=== PATIENT | female | born 1975 | race Caucasian/White ===

== ENCOUNTER 2017-04-23 23:11 | Emergency (ER) | payer OTHER ==
[2017-04-24 00:14] LABS: microscopic required? YES; urine erythrocyte NEGATIVE (NEGATIVE)
[2017-04-24 01:40] VITALS: BP 120/80
== END 2017-04-24 01:40 | disposition home or self-care (01) ==
LOC: ED 23:11
PROVIDERS: Emergency Medicine
DX: N39.0 Urinary tract infection, site not specified (principal); R03.0 Elevated blood-pressure reading, without diagnosis of hypertension; M54.5 Low back pain
CPT/HCPCS: 87491; 87591; J1885

== ENCOUNTER 2018-03-22 14:21 | Emergency (ER) | payer OTHER ==
[~2018-03-22] VITALS: Ht 170.2 cm; Wt 68.0 kg
[2018-03-22 14:29] VITALS: Ht 170.2 cm; Wt 68.0 kg
[2018-03-22 15:22] VITALS: BP 130/76
== END 2018-03-22 15:26 | disposition home or self-care (01) ==
LOC: ED 14:21
DX: J02.9 Acute pharyngitis, unspecified (principal)
CPT/HCPCS: J1885

== ENCOUNTER 2019-06-14 02:22 | Emergency (ER) | payer OTHER ==
[~2019-06-14] VITALS: Ht 165.1 cm; Wt 78.5 kg
[2019-06-14 02:29] VITALS: Ht 165.1 cm; Wt 78.5 kg
[2019-06-14 05:47] VITALS: BP 114/59
== END 2019-06-14 05:47 | disposition home or self-care (01) ==
LOC: ED 02:22
DX: G43.909 Migraine, unspecified, not intractable, without status migrainosus (principal); R11.2 Nausea with vomiting, unspecified
CPT/HCPCS: J1200; J2765

== ENCOUNTER 2020-08-19 22:55 | Emergency (ER) | payer OTHER ==
[~2020-08-19] VITALS: Ht 165.1 cm; Wt 83.5 kg
[2020-08-19 23:11] VITALS: Ht 165.1 cm; Wt 83.5 kg
[2020-08-20 00:22] LABS: BASOPHIL % 0.9 % (0-2); PLATELET COUNT 244 x10^3mcL (130-400); RED CELL DISTRIBUTION WIDTH 13.1 % (11.5-14.5)
[2020-08-20 00:28] LABS: CALCIUM 8.4 mg/dL (8.5-10.1); CARBON DIOXIDE 25.7 mmol/L (21-32); CHLORIDE SERUM 104 mmol/L (98-107); CREATININE SERUM 0.7 mg/dL (0.6-1.0); GFR1 > 60 mL/min; GLUCOSE SERUM 93 mg/dL (74-106); SODIUM SERUM 137 mmol/L (136-145)
[2020-08-20 00:31] LABS: T3 TOTAL 1.44 ng/mL
[2020-08-20 00:33] LABS: ALKALINE PHOSPHATASE 56 U/L (46-116); ALT/SGPT 33 U/L (14-59); AST/SGOT 20 U/L (15-37); BILIRUBIN TOTAL 0.16 mg/dL (0.20-1.00); CHOLESTEROL 163 mg/dL (<200); CHOLESTEROL/HDL RATIO 4.5; HDL CHOLESTEROL 36 mg/dL (40-60); LIPASE 126 IU/L (73-393); TOTAL PROTEIN, SERUM 6.8 g/dL (6.4-8.2); TRIGLYCERIDES 118 mg/dL (<150)
[2020-08-20 00:40] LABS: ALBUMIN 3.2 g/dL (3.4-5.0)
[2020-08-20 01:03] LABS: microscopic required? YES; urine erythrocyte TRACE (NEGATIVE)
[2020-08-20 01:07] VITALS: BP 135/66
[2020-08-20 01:07] LABS: FREE T4 1.01 ng/dL (0.76-1.46); FREE THYROXINE INDEX 2.8 ug/dL (1.4-4.5); T4(THYROXINE) 8.9 ug/dL (4.7-13.3)
== END 2020-08-20 01:07 | disposition home or self-care (01) ==
LOC: ED 22:55
PROVIDERS: Specialist
DX: I10 Essential (primary) hypertension (principal); E66.9 Obesity, unspecified
CPT/HCPCS: 83880; 84439; Q0092

== ENCOUNTER 2020-08-21 20:39 | Emergency (ER) | payer OTHER ==
[~2020-08-21] VITALS: Ht 165.1 cm; Wt 81.6 kg
[2020-08-21 20:49] VITALS: Ht 165.1 cm; Wt 81.6 kg
[2020-08-21 23:01] VITALS: BP 158/72
== END 2020-08-21 23:30 | disposition home or self-care (01) ==
LOC: ED 20:39
DX: R51 Headache (principal)
CPT/HCPCS: J0780; J1885

== ENCOUNTER 2020-11-18 13:44 | Emergency (ER) | payer OTHER, SELFPAY ==
[~2020-11-18] VITALS: Ht 165.1 cm; Wt 79.4 kg
[2020-11-18 13:47] VITALS: BP 146/60; Ht 165.1 cm; Wt 79.4 kg
== END 2020-11-18 16:21 | disposition home or self-care (01) ==
LOC: ED 13:44
DX: U07.1 COVID-19 (principal); I10 Essential (primary) hypertension; G43.909 Migraine, unspecified, not intractable, without status migrainosus

== ENCOUNTER 2020-12-04 16:35 | Emergency (ER) | payer OTHER, SELFPAY ==
[~2020-12-04] VITALS: Ht 165.1 cm; Wt 79.4 kg
[2020-12-04 16:37] VITALS: Ht 165.1 cm; Wt 79.4 kg
[2020-12-04 18:35] LABS: BASOPHIL % 0.7 % (0.2-1.3); PLATELET COUNT 309 x10^3mcL (179-408)
[2020-12-04 18:41] LABS: CALCIUM 9.3 mg/dL (8.5-10.1); CARBON DIOXIDE 25.6 mmol/L (21-32); CHLORIDE SERUM 100 mmol/L (98-107); CREATININE SERUM 0.6 mg/dL (0.6-1.0); GFR1 > 60 mL/min; GLUCOSE SERUM 90 mg/dL (74-106); POTASSIUM SERUM 3.4 mmol/L (3.5-5.1); SODIUM SERUM 136 mmol/L (136-145)
[2020-12-04 18:45] LABS: ALBUMIN 3.6 g/dL (3.4-5.0); ALKALINE PHOSPHATASE 68 U/L (46-116); ALT/SGPT 60 U/L (14-59); AST/SGOT 29 U/L (15-37); BILIRUBIN TOTAL 0.6 mg/dL (0.20-1.00); TOTAL PROTEIN, SERUM 7.4 g/dL (6.4-8.2)
[2020-12-04 23:18] VITALS: BP 125/90
== END 2020-12-04 23:18 | disposition home or self-care (01) ==
LOC: ED 16:35
PROVIDERS: Student in an Organized Health Care Education/Training Program
DX: R07.89 Other chest pain (principal); R09.1 Pleurisy
CPT/HCPCS: 85378; Q9967